=== PATIENT | male | born 1955 | race Caucasian/White ===

== ENCOUNTER 2018-10-30 17:58 | Observation (INO) | payer MEDICARE ==
[2018-10-30] MEDS ORDERED: 0.9 % SODIUM CHLORIDE 1000ML 1,000 ML IV SCH (18:15)
[2018-10-30] MEDS ORDERED: ACETAMINOPHEN 500 MG TABLET PO ONE (18:15)
--- NOTE | 2018-10-30 18:19 | Emergency Department Record ---
History of Present Illness - General Chief Complaint: Fever Stated Complaint: FEVER Time Seen by Provider: 10/30/18 18:14 Source: Patient Mode of Arrival: Ambulatory Limitations: No limitations - History of Present Illness Initial Comments: 63 yo male presents to ED for evaluation of fever symptoms at home 1 day following prostate biopsy. Patient reports chills, denies nausea, vomiting, flank pain, abdominal pain, or cough symptoms. Patient denies dysuria or hematuria symptoms as well. Patient was prescribed Cipro following his procedure yesterday as well. MD Complaint: Fever Onset/Timin -: Hour(s) Maximum Temperature: 102 F Temperature Source: Oral Context: Recent procedure Associated Symptoms: Denies other symptoms Treatments Prior to Arrival: None - Related Data Home Medications Medication Instructions Recorded Confirmed Last Taken Ciprofloxacin HCl [Cipro] 500 mg PO BID 10/30/18 10/30/18 10/30/18 Sotalol HCl [Betapace] 80 mg PO BID 10/30/18 10/30/18 10/30/18 Allergies Allergy/AdvReac Type Severity Reaction Status Date / Time No Known Drug Allergies Allergy Unknown Verified 10/30/18 18:05 [NO KNOWN DRUG ALLERGIES] Travel Screening - Travel/Exposure Within Last 30 Days Have you traveled within the last 30 days?: No Review of Systems Constitutional: Reports: Chills, Fever, Malaise. Denies: Night sweats Eyes: Denies: Eye discharge, Eye pain ENT: Denies: Congestion, Ear pain, Epistaxis Respiratory: Denies: Cough, Dyspnea Cardiovascular: Denies: Chest pain, Dyspnea on exertion Endocrine: Denies: Fatigue, Heat or cold intolerance Gastrointestinal: Denies: Abdominal pain, Nausea, Vomiting Genitourinary: Denies: Dysuria, Hematuria, Incontinence, Retention Musculoskeletal: Denies: Arthralgia, Back pain Skin: Denies: Bruising, Change in color, Change in hair/nails Neurological: Denies: Abnormal gait, Confusion, Headache, Tingling, Tremors, Weakness Psychiatric: Denies: Anxiety Hematological/Lymphatic: Denies: Anemia, Blood Clots Past Medical History - SOCIAL HISTORY Smoking Status: Never smoker Alcohol Use: Occasional Drug Use: None - RESPIRATORY Hx Respiratory Disorders: No - CARDIOVASCULAR Hx Cardio Disorders: Yes Hx Irregular Heartbeat: Yes (controlled afib) - NEURO Hx Neuro Disorders: No - GI Hx GI Disorders: No - Hx Genitourinary Disorders: No - ENDOCRINE Hx Endocrine Disorders: No - MUSCULOSKELETAL Hx Musculoskeletal Disorders: No - PSYCH Hx Psych Problems: No - HEMATOLOGY/ONCOLOGY Hx Hematology/Oncology Disorders: No Family Medical History Any Significant Family History?: No Physical Exam - General General Appearance: Alert, Oriented x3, Cooperative, Mild distress Limitations: No limitations - Head Head exam: Atraumatic, Normocephalic, Normal inspection Head exam detail: negative: Abrasion, Contusion, Mendieta's sign, General tenderness, Hematoma, Laceration - Eye Eye exam: Normal appearance. negative: Conjunctival injection, Periorbital swelling, Periorbital tenderness, Scleral icterus - ENT Ear exam: negative: Auricular hematoma, Auricular trauma Nasal Exam: negative: Active bleeding, Discharge, Dried blood, Foreign body Mouth exam: negative: Drooling, Laceration, Muffled voice, Tongue elevation - Neck Neck exam: Normal inspection. negative: Meningismus, Tenderness - Respiratory Respiratory exam: Normal lung sounds bilaterally. negative: Respiratory distress, Rhonchi, Stridor, Wheezes - Cardiovascular Cardiovascular Exam: Normal rhythm, Normal heart sounds, Tachycardia - GI/Abdominal GI/Abdominal exam: Soft. negative: Rebound, Rigid, Tenderness - Rectal Rectal exam: Deferred - exam: Deferred - Extremities Extremities exam: Normal inspection. negative: Pedal edema, Tenderness - Back Back exam: Denies: CVA tenderness (R), CVA tenderness (L) - Neurological Neurological exam: Alert, Normal gait, Oriented X3 - Psychiatric Psychiatric exam: Normal affect, Normal mood - Skin Skin exam: Normal color. negative: Abrasion Type of lesion: negative: abrasion Course Vital Signs 10/30/18 18:01 Temperature 101.3 F H Pulse Rate 101 H Respiratory 20 Rate Blood Pressure 151/92 Pulse Ox 97 - Reevaluation(s) Reevaluation #1: 10/30/18 19:14 Laboratory studies were reviewed: UA demonstrates: >50 RBCs 6-10 WBCs 4+ Bacteria Dr. Kidd pagemarlen for consultation. Reevaluation #2: 10/30/18 19:23 Case was discussed with Dr. Kidd, will initiate treatment with Cefipime per his recommendation and admit the patient for observation given his failed outpatient treatment. Patient and his SO are in agreement with the plan of care as discussed. Reevaluation #3: 10/30/18 19:27 Case was discussed with Madhuri Roberson NP, will accept admission at this time. Cefepime is being initiated in ED as well prior to transfer to the floor. Patient and his are in agreement with the plan of care as discussed. Medical Decision Making - Lab Data Result diagrams: 10/30/18 18:20 10/30/18 18:20 Disposition Disposition: Admit Clinical Impression: Post-operative infection Qualifiers: Encounter type: initial encounter Postoperative infection type: unspecified type Qualified Code(s): T81.40XA - Infection following a procedure, unspecified , initial encounter UTI (urinary tract infection) Qualifiers: Urinary tract infection type: acute cystitis Hematuria presence: with hematuria Qualified Code(s): N30.01 - Acute cystitis with hematuria Prostatitis Qualifiers: Prostatitis type: acute Qualified Code(s): N41.0 - Acute prostatitis Disposition: Still a Patient at [facility] Decision to Admit: Admit from ER Decision to Admit Date: 10/30/18 Decision to Admit Time: 19:25 Condition: (2) Stable Forms: Patient Portal Access Time of Disposition: 19:25 Quality - Quality Measures Quality Measures: N/A - Blood Pressure Screening Does Patient Have Any of the Following: No Blood Pressure Classification: Hypertensive Reading Systolic Measurement: 151 Diastolic Measurement: 92 Screening for High Blood Pressure: < First Hypertensive BP, F/U Documented > [ [id number]] First Hypertensive Follow-up Interventions: Referral to alternative/primary care provider.
[2018-10-30 18:30] LABS: BASO % 0.2 % (0-6); EOS % 1.3 % (0-6); HEMATOCRIT 42.3 % (42.0-52.0); HEMOGLOBIN 14.1 gm/dl (14.0-18.0); LYMPH % 13.9 % (16-45); MEAN CELL VOLUME 93.8 fl (81-97); MEAN CORPUSCULAR HEMOGLOBIN 31.3 pg (27-33); MEAN CORPUSCULAR HGB CONC 33.3 g/dl (32-36); MONO % 7.6 % (0-9); PLATELET COUNT 226 K/uL (130-400); RED BLOOD COUNT 4.51 M/uL (4.40-5.70); RED CELL DISTRIBUTION WIDTH 13.2 % (11.5-14.5); WHITE BLOOD COUNT W/O DIFF 10.5 K/uL (4.2-12.2)
[2018-10-30 18:43] LABS: BLOOD UREA NITROGEN 20 mg/dL (8-23); CREATININE 1.1 mg/dL (0.7-1.2); EST GLOMERULAR FILTRATION RATE > 60 mL/min
[2018-10-30 18:44] LABS: TOTAL PROTEIN 7.8 g/dL (6.6-8.7)
[2018-10-30 18:46] LABS: GLUCOSE,RANDOM 107 mg/dL (74-109)
[2018-10-30 18:49] LABS: ALB/GLOB RATIO 1.4 (1.1-1.8); ALBUMIN 4.5 g/dL (4.0-5.0); ALKALINE PHOSPHATASE 48 U/L (40-129); ALT/SGPT 19 U/L (<41); AST/SGOT 21 U/L (10.0-50.0)
[2018-10-30] MEDS ORDERED: IBUPROFEN 400 MG TABLET PO ONE (18:53)
[2018-10-30 19:05] LABS: URINE BILIRUBIN NEGATIVE (NEGATIVE); URINE BLOOD LARGE (NEGATIVE); URINE COLOR YELLOW; URINE GLUCOSE (UA) NEGATIVE (NEGATIVE); URINE KETONE NEGATIVE (NEGATIVE); URINE LEUKOCYTE ESTERASE SMALL (NEGATIVE); URINE NITRITE POSITIVE (NEGATIVE); URINE PROTEIN NEGATIVE (NEGATIVE); URINE UROBILINOGEN 0.2 E.U./dL (0.20 - 1.00)
[2018-10-30 19:06] LABS: URINE APPEARANCE CLOUDY
[2018-10-30 19:10] LABS: URINE RBC >50 (NONE SEEN)
[2018-10-30 19:11] LABS: URINE BACTERIA 4+; URINE EPITHELIAL CELLS NONE SEEN (FEW)
[2018-10-30] MEDS ORDERED: CEFTRIAXONE 1GM/50ML BAG 1 GM/50 ML BAG IVPB ONE (19:18)
[2018-10-30] MEDS ORDERED: CEFEPIME HCL 2 GM in 0.9 % SODIUM CHLORIDE 100ML 100 ML IVPB ONE (19:22)
[2018-10-30] MEDS ORDERED: 0.9 % SODIUM CHLORIDE 1000ML 1,000 ML IV PRN (20:30)
[2018-10-30] MEDS: SOTALOL HCL 80 MG TABLET PO SCH (22:28)
[2018-10-30] MEDS: CIPROFLOXACIN HCL 500 MG TABLET PO SCH (22:32)
[2018-10-31] MEDS ORDERED: CEFEPIME HCL 2 GM in 0.9 % SODIUM CHLORIDE 100ML 100 ML IVPB SCH (03:30)
[2018-10-31 06:57] LABS: BASO % 0.1 % (0-6); EOS % 0.2 % (0-6); HEMATOCRIT 36.9 % (42.0-52.0); HEMOGLOBIN 11.9 gm/dl (14.0-18.0); LYMPH % 6.5 % (16-45); MEAN CELL VOLUME 95.3 fl (81-97); MEAN CORPUSCULAR HEMOGLOBIN 30.7 pg (27-33); MEAN CORPUSCULAR HGB CONC 32.2 g/dl (32-36); MEAN PLATELET VOLUME 10.3 fl (7.4-10.4); MONO % 6.6 % (0-9); PLATELET COUNT 190 K/uL (130-400); RED BLOOD COUNT 3.87 M/uL (4.40-5.70); RED CELL DISTRIBUTION WIDTH 13.4 % (11.5-14.5); WHITE BLOOD COUNT W/O DIFF 12.9 K/uL (4.2-12.2)
[2018-10-31 07:17] LABS: ALB/GLOB RATIO 1.3 (1.1-1.8); ALBUMIN 3.6 g/dL (4.0-5.0); ALKALINE PHOSPHATASE 42 U/L (40-129); ALT/SGPT 16 U/L (<41); AST/SGOT 18 U/L (10.0-50.0); BLOOD UREA NITROGEN 20 mg/dL (8-23); CREATININE 1.1 mg/dL (0.7-1.2); EST GLOMERULAR FILTRATION RATE > 60 mL/min; GLUCOSE,RANDOM 130 mg/dL (74-109); TOTAL PROTEIN 6.4 g/dL (6.6-8.7)
[2018-10-31] MEDS: CALCIUM CARBONATE 500 MG TAB.CHEW PO PRN ×2 (07:30→13:54)
[2018-10-31] MEDS: ACETAMINOPHEN 500 MG TABLET PO PRN ×3 (07:35→21:25)
[2018-10-31] MEDS: SOTALOL HCL 80 MG TABLET PO SCH ×2 (09:15→21:25)
[2018-10-31] MEDS: CIPROFLOXACIN HCL 500 MG TABLET PO SCH ×2 (09:15→21:25)
--- NOTE | 2018-10-31 11:01 | History & Physical ---
History of Present Illness - Date of Service Date of Service for History & Physical: 10/31/18 - History of Present Illness Admitting Diagnosis: Post-op infection. Prostatitis. UTI History of Present Illness: 63 yo male presents to ED for evaluation of fever symptoms at home 1 day following prostate biopsy. Patient reports chills, denies nausea, vomiting, flank pain, abdominal pain, or cough symptoms. Patient denies dysuria or hematuria symptoms as well. Patient was prescribed Cipro following his procedure yesterday as well. In the ED, temp was 101.3, HR 101, BP 151/92, RR 20, 97% on room air. UA demonstrated >50 RBCs, 6-10 WBCs, 4+ bacteria. Dr. Berry spoke with Dr. Kidd and he recommended obs with IV cefipime, since failed outpatient cipro. 10/31/18: Pt. is resting in bed, he currently denies pain. Temp at 1045 was 99.4. Changed cefipime IV to cefdinir 300mg bid. Will plan to d/c home this evening if pt remains afebrile. PCP: Dr. Hill Urology: Dr. Kidd Travel Screening - Travel/Exposure Within Last 30 Days Have you traveled within the last 30 days?: No - Travel/Exposure Within Last Year Have you traveled outside the [place] in the last year?: Yes Location Detail:: [place] - Additonal Travel Details Have you been exposed to anyone with a communicable illness?: No - Travel Symptoms Symptom Screening: None Review of Systems Constitutional: Reports: Chills, Fever, Malaise. Denies: Night sweats Eyes: Denies: Eye discharge, Eye pain ENT: Denies: Congestion, Ear pain, Epistaxis Respiratory: Denies: Cough, Dyspnea Cardiovascular: Denies: Chest pain, Dyspnea on exertion Endocrine: Denies: Fatigue, Heat or cold intolerance Gastrointestinal: Denies: Abdominal pain, Nausea, Vomiting Genitourinary: Denies: Dysuria, Hematuria, Incontinence, Retention Musculoskeletal: Denies: Arthralgia, Back pain Skin: Denies: Bruising, Change in color, Change in hair/nails Neurological: Denies: Abnormal gait, Confusion, Headache, Tingling, Tremors, Weakness Psychiatric: Denies: Anxiety Hematological/Lymphatic: Denies: Anemia, Blood Clots Past Medical History - SOCIAL HISTORY Smoking Status: Never smoker Alcohol Use: Occasional Drug Use: None - RESPIRATORY Hx Respiratory Disorders: No - CARDIOVASCULAR Hx Cardio Disorders: Yes Hx Irregular Heartbeat: Yes (controlled afib) - NEURO Hx Neuro Disorders: No - GI Hx GI Disorders: No - Hx Genitourinary Disorders: No - ENDOCRINE Hx Endocrine Disorders: No - MUSCULOSKELETAL Hx Musculoskeletal Disorders: No - PSYCH Hx Psych Problems: No - HEMATOLOGY/ONCOLOGY Hx Hematology/Oncology Disorders: No Family Medical History Any Significant Family History?: No H&P Meds/Allergies - Allergies Allergies: Allergies Allergy/AdvReac Type Severity Reaction Status Date / Time No Known Drug Allergies Allergy Unknown Verified 10/30/18 18:05 [NO KNOWN DRUG ALLERGIES] - Home Medications Home Medications Medication Instructions Recorded Confirmed Last Taken Ciprofloxacin HCl [Cipro] 500 mg PO BID 10/30/18 10/30/18 10/30/18 Sotalol HCl [Betapace] 80 mg PO BID 10/30/18 10/30/18 10/30/18 - Active Medications Active Medications: Current Medications Acetaminophen (Tylenol 500mg Tab) 1,000 mg PO Q6H PRN PRN Reason: PAIN - MILD(1-4)/FEVER Last Admin: 10/31/18 07:35 Dose: 1,000 mg Calcium Carbonate/Glycine (Tums) 500 mg PO Q4H PRN PRN Reason: GI UPSET Last Admin: 10/31/18 07:30 Dose: 500 mg Cefdinir (Cefdinir) 300 mg PO BID [facility] Ciprofloxacin (Cipro) 500 mg PO BID [facility] Last Admin: 10/31/18 09:15 Dose: 500 mg Sodium Chloride () 1,000 mls @ 0 mls/hr IV .Q0M [facility] Last Infusion: 10/30/18 19:13 Dose: Infused Sodium Chloride () 1,000 mls @ 125 mls/hr IV .Q8H PRN PRN Reason: LARGE VOLUME IV Ibuprofen (Motrin 400mg) 800 mg PO Q8H PRN PRN Reason: FEVER Sotalol HCl (Betapace) 80 mg PO BID [facility] Last Admin: 10/31/18 09:15 Dose: 80 mg Physical Exam - Vital Signs Vital Signs: Vital Signs - Last 24 Hrs Temp Pulse Pulse Resp BP BP Pulse Ox 10/31/18 10:48 99.4 F 10/31/18 07:38 100.9 F H 86 18 142/79 96 10/31/18 04:00 97.4 F L 79 16 138/75 99 10/30/18 21:00 16 10/30/18 20:59 99.9 F H 92 H 16 121/73 96 10/30/18 20:10 103 F H 98 H 20 121/76 93 L 10/30/18 19:38 102.6 F H 10/30/18 19:20 101.8 F H 103 H 148/90 94 L 10/30/18 18:57 103.1 F H 10/30/18 18:01 101.3 F H 101 H 20 151/92 97 - General General Appearance: Alert, Oriented x3, Cooperative, No acute distress Limitations: No limitations - Head Head exam: Atraumatic, Normocephalic, Normal inspection Head exam detail: negative: Abrasion, Contusion, Mendieta's sign, General tenderness, Hematoma, Laceration - Eye Eye exam: Normal appearance. negative: Conjunctival injection, Periorbital swelling, Periorbital tenderness, Scleral icterus - ENT Ear exam: negative: Auricular hematoma, Auricular trauma Nasal Exam: negative: Active bleeding, Discharge, Dried blood, Foreign body Mouth exam: negative: Drooling, Laceration, Muffled voice, Tongue elevation - Neck Neck exam: Normal inspection. negative: Meningismus, Tenderness - Respiratory Respiratory exam: Normal lung sounds bilaterally. negative: Respiratory distress, Rhonchi, Stridor, Wheezes - Cardiovascular Cardiovascular Exam: Normal rhythm, Normal heart sounds - GI/Abdominal GI/Abdominal exam: Soft. negative: Rebound, Rigid, Tenderness - Rectal Rectal exam: Deferred - exam: Deferred - Extremities Extremities exam: Normal inspection. negative: Pedal edema, Tenderness - Back Back exam: Denies: CVA tenderness (R), CVA tenderness (L) - Neurological Neurological exam: Alert, Normal gait, Oriented X3 - Psychiatric Psychiatric exam: Normal affect, Normal mood - Skin Skin exam: Normal color. negative: Abrasion Type of lesion: negative: abrasion Results - Labs Result Diagrams: 10/31/18 06:33 10/31/18 06:33 Labs Last 24 Hours: Laboratory Results - last 24 hr 04/16/19 04/16/19 04/16/19 18:20 18:20 18:55 WBC 10.5 RBC 4.51 Hgb 14.1 Hct 42.3 MCV 93.8 MCH 31.3 MCHC 33.3 RDW 13.2 Plt Count 226 MPV 10.0 Gran % 77.0 Neutrophils % Lymphocytes % 13.9 L Monocytes % 7.6 Eosinophils % 1.3 Basophils % 0.2 Lymphocytes Monocytes Sodium 138 Potassium 4.0 Chloride 99 Carbon Dioxide 26.0 Anion Gap 13.0 BUN 20 Creatinine 1.1 Estimated GFR > 60 Random Glucose 107 Calcium 10.0 Total Bilirubin 0.30 AST 21 ALT 19 Alkaline Phosphatase 48 Total Protein 7.8 Albumin 4.5 Globulin 3.3 Albumin/Globulin Ratio 1.4 Urine Color Yellow Urine Appearance Cloudy Urine pH 6.5 Ur Specific [place] 1.015 Urine Protein Negative Urine Glucose (UA) Negative Urine Ketones Negative Urine Blood Large H Urine Nitrite Positive H Urine Bilirubin Negative Urine Urobilinogen 0.2 Ur Leukocyte Esterase Small H Urine RBC >50 Urine WBC 6 - 10 Ur Epithelial Cells None seen Urine Bacteria 4+ 10/31/18 10/31/18 06:33 06:33 WBC 12.9 H RBC 3.87 L Hgb 11.9 L Hct 36.9 L MCV 95.3 MCH 30.7 MCHC 32.2 RDW 13.4 Plt Count 190 MPV 10.3 Gran % Neutrophils % 85.0 H Lymphocytes % 6.5 L Monocytes % 6.6 Eosinophils % 0.2 Basophils % 0.1 Lymphocytes 7.0 L Monocytes 8.0 Sodium 139 Potassium 3.7 Chloride 106 Carbon Dioxide 23.0 Anion Gap 10.0 BUN 20 Creatinine 1.1 Estimated GFR > 60 Random Glucose 130 H Calcium 8.8 Total Bilirubin 0.50 AST 18 ALT 16 Alkaline Phosphatase 42 Total Protein 6.4 L Albumin 3.6 L Globulin 2.8 Albumin/Globulin Ratio 1.3 Urine Color Urine Appearance Urine pH Ur Specific [place] Urine Protein Urine Glucose (UA) Urine Ketones Urine Blood Urine Nitrite Urine Bilirubin Urine Urobilinogen Ur Leukocyte Esterase Urine RBC Urine WBC Ur Epithelial Cells Urine Bacteria VTE H&P Assessment - Risk for VTE Risk for VTE: Yes Risk Level: Very Low Risk Assessment Date: 10/31/18 Risk Assessment Time: 10:59 VTE Orders Placed or Will Be Placed: Yes Plan - Detailed Diagnosis and Plan (1) Prostatitis Current Visit: Yes Status: Acute Qualifiers: Prostatitis type: acute Qualified Code(s): N41.0 - Acute prostatitis Base Code: N41.9 - INFLAMMATORY DISEASE OF PROSTATE, UNSPECIFIED Comment: 10/31: -Secondary to prostate biopsy on 10/29 -changed from IV to po abx today (2) UTI (urinary tract infection) Current Visit: Yes Status: Acute Qualifiers: Urinary tract infection type: acute cystitis Hematuria presence: with hematuria Qualified Code(s): N30.01 - Acute cystitis with hematuria Base Code: N39.0 - URINARY TRACT INFECTION, SITE NOT SPECIFIED Comment: -Pos UA on 10/30- sent for culture -Changed cefipime to cefdinir today (3) At risk for deep venous thrombosis Current Visit: Yes Status: Acute Base Code: Z91.89 - OTH PERSONAL RISK FACTORS, NOT ELSEWHERE CLASSIFIED Comment: 10/31/18: -will order prophylaxis if hospitalization greater than 24h (4) Full code status Current Visit: Yes Status: Acute Base Code: Z78.9 - OTHER SPECIFIED HEALTH STATUS Comment: 10/31/18: -Pt. is a full code
[2018-10-31] MEDS: CEFDINIR 300 MG CAPSULE PO SCH ×2 (11:20→21:25)
[2018-10-31] MEDS: IBUPROFEN 400 MG TABLET PO PRN (13:53)
[2018-10-31] MEDS ORDERED: ACETAMINOPHEN 1,000 MG/100 ML BTL IVPB PRN (16:00)
[2018-11-01] MEDS: IBUPROFEN 400 MG TABLET PO PRN (00:23)
[2018-11-01] MEDS: ACETAMINOPHEN 500 MG TABLET PO PRN (03:31)
[2018-11-01 07:04] LABS: BASO % 0.1 % (0-6); EOS % 0.8 % (0-6); GRAN % 78.7 % (47-80); HEMATOCRIT 33.6 % (42.0-52.0); HEMOGLOBIN 10.7 gm/dl (14.0-18.0); MEAN CELL VOLUME 97.4 fl (81-97); MEAN CORPUSCULAR HGB CONC 31.8 g/dl (32-36); MEAN PLATELET VOLUME 9.9 fl (7.4-10.4); MONO % 8.4 % (0-9); PLATELET COUNT 156 K/uL (130-400); RED BLOOD COUNT 3.45 M/uL (4.40-5.70); RED CELL DISTRIBUTION WIDTH 13.7 % (11.5-14.5); WHITE BLOOD COUNT W/O DIFF 9.7 K/uL (4.2-12.2)
[2018-11-01 07:24] LABS: ALB/GLOB RATIO 1.2 (1.1-1.8); ALBUMIN 3.2 g/dL (4.0-5.0); ALKALINE PHOSPHATASE 45 U/L (40-129); ALT/SGPT 21 U/L (<41); AST/SGOT 21 U/L (10.0-50.0); BLOOD UREA NITROGEN 16 mg/dL (8-23); CREATININE 1.2 mg/dL (0.7-1.2); EST GLOMERULAR FILTRATION RATE > 60 mL/min; GLUCOSE,RANDOM 108 mg/dL (74-109); TOTAL PROTEIN 5.9 g/dL (6.6-8.7)
[2018-11-01] MEDS: CEFDINIR 300 MG CAPSULE PO SCH (09:12)
[2018-11-01] MEDS: SOTALOL HCL 80 MG TABLET PO SCH (09:12)
[2018-11-01] MEDS: CIPROFLOXACIN HCL 500 MG TABLET PO SCH (09:12)
--- NOTE | 2018-11-01 10:37 | Discharge Summary ---
Providers Discharge Summary Date: 11/01/18 Date of admission: 10/30/18 20:21 Expected Date of Discharge: 11/01/18 Attending physician: LAUREN BRADFORD Primary care physician: CLEMENCIA GÓMEZ D.O. Physical Exam - Vital Signs Vital Signs: Vital Signs - Last 24 Hrs Temp Pulse Resp BP Pulse Ox 11/01/18 08:17 97.1 F L 62 16 112/76 11/01/18 04:30 98.3 F 62 18 95/60 94 L 11/01/18 02:35 99.1 F 11/01/18 00:00 100 F H 79 20 125/70 92 L 10/31/18 21:00 16 10/31/18 20:00 98.9 F 79 18 120/67 94 L 10/31/18 16:00 99.2 F 80 18 117/68 96 10/31/18 15:56 100.5 F H 10/31/18 12:00 100.9 F H 20 152/89 94 L 10/31/18 10:48 99.4 F - General General Appearance: Alert, Oriented x3, Cooperative, No acute distress Limitations: No limitations - Head Head exam: Atraumatic, Normocephalic, Normal inspection Head exam detail: negative: Abrasion, Contusion, Mendieta's sign, General tenderness, Hematoma, Laceration - Eye Eye exam: Normal appearance. negative: Conjunctival injection, Periorbital swelling, Periorbital tenderness, Scleral icterus - ENT Ear exam: negative: Auricular hematoma, Auricular trauma Nasal Exam: negative: Active bleeding, Discharge, Dried blood, Foreign body Mouth exam: negative: Drooling, Laceration, Muffled voice, Tongue elevation - Neck Neck exam: Normal inspection. negative: Meningismus, Tenderness - Respiratory Respiratory exam: Normal lung sounds bilaterally. negative: Respiratory distress, Rhonchi, Stridor, Wheezes - Cardiovascular Cardiovascular Exam: Normal rhythm, Normal heart sounds - GI/Abdominal GI/Abdominal exam: Soft. negative: Rebound, Rigid, Tenderness - Rectal Rectal exam: Deferred - exam: Deferred - Extremities Extremities exam: Normal inspection. negative: Pedal edema, Tenderness - Back Back exam: Denies: CVA tenderness (R), CVA tenderness (L) - Neurological Neurological exam: Alert, Normal gait, Oriented X3 - Psychiatric Psychiatric exam: Normal affect, Normal mood - Skin Skin exam: Normal color. negative: Abrasion Type of lesion: negative: abrasion Hospitalization - Hospitalization Admission Diagnosis: Post-op infection. Prostatitis. UTI - Problem List/Discharge Diagnosis (1) Prostatitis Current Visit: Yes Status: Acute Discharge Diagnosis: Prostatitis type: acute Qualified Code(s): N41.0 - Acute prostatitis Base Code: N41.9 - INFLAMMATORY DISEASE OF PROSTATE, UNSPECIFIED Comment: 11/01: -Secondary to prostate biopsy on 10/29 -Pt. is tolerating PO cefdinir 300mg bid, WBC improved from 12.9 to 9.7 today, temp less than 100.4 since 1500 10/31 (2) UTI (urinary tract infection) Current Visit: Yes Status: Acute Discharge Diagnosis: Urinary tract infection type: acute cystitis Hematuria presence: with hematuria Qualified Code(s): N30.01 - Acute cystitis with hematuria Base Code: N39.0 - URINARY TRACT INFECTION, SITE NOT SPECIFIED Comment: -Pos UA on 10/30- sent for culture -Pt. is tolerating PO cefdinir 300mg bid, WBC improved from 12.9 to 9.7 today, temp less than 100.4 since 1500 10/31 (3) At risk for deep venous thrombosis Current Visit: Yes Status: Acute Base Code: Z91.89 - OTH PERSONAL RISK FACTORS, NOT ELSEWHERE CLASSIFIED Comment: 11/01/18: -d/c home today, pt will return to normal level of activity (4) Full code status Current Visit: Yes Status: Acute Base Code: Z78.9 - OTHER SPECIFIED HEALTH STATUS Comment: 11/01/18: -Pt. is a full code - Hospitalization Course Disposition: Home, Self-Care Hospital Course: 63 yo male presents to ED for evaluation of fever symptoms at home 1 day following prostate biopsy. Patient reports chills, denies nausea, vomiting, flank pain, abdominal pain, or cough symptoms. Patient denies dysuria or hematuria symptoms as well. Patient was prescribed Cipro following his procedure yesterday as well. In the ED, temp was 101.3, HR 101, BP 151/92, RR 20, 97% on room air. UA demonstrated >50 RBCs, 6-10 WBCs, 4+ bacteria. Dr. Berry spoke with Dr. Kidd and he recommended obs with IV cefipime, since failed outpatient cipro. 10/31/18: Pt. is resting in bed, he currently denies pain. Temp at 1045 was 99.4. Changed cefipime IV to cefdinir 300mg bid. Will plan to d/c home this evening if pt remains afebrile. 11/01/18: Pt. is tolerating PO cefdinir 300mg bid, WBC improved from 12.9 to 9.7 today , temp less than 100.4 since 1500 10/31 PCP: Dr. Gómez Urology: Dr. Kidd Abnormal Labs: Abnormal Lab Results 10/30/18 10/30/18 10/31/18 Range/Units 18:20 18:55 06:33 WBC 12.9 H (4.2-12.2) K/uL RBC 3.87 L (4.40-5.70) M/uL Hgb 11.9 L (14.0-18.0) gm/dl Hct 36.9 L (42.0-52.0) % MCV (81-97) fl MCHC (32-36) g/dl Neutrophils % 85.0 H (47-80) % Lymphocytes % 13.9 L 6.5 L (16-45) % Lymphocytes 7.0 L (16-45) % Chloride (98-107) mmol/L Random Glucose (74-109) mg/dL Total Protein (6.6-8.7) g/dL Albumin (4.0-5.0) g/dL Urine Blood Large H (NEGATIVE) Urine Nitrite Positive H (NEGATIVE) Ur Leukocyte Esterase Small H (NEGATIVE) 10/31/18 11/01/18 11/01/18 Range/Units 06:33 06:51 06:51 WBC (4.2-12.2) K/uL RBC 3.45 L (4.40-5.70) M/uL Hgb 10.7 L (14.0-18.0) gm/dl Hct 33.6 L (42.0-52.0) % MCV 97.4 H (81-97) fl MCHC 31.8 L (32-36) g/dl Neutrophils % (47-80) % Lymphocytes % 12.0 L (16-45) % Lymphocytes (16-45) % Chloride 108 H (98-107) mmol/L Random Glucose 130 H (74-109) mg/dL Total Protein 6.4 L 5.9 L (6.6-8.7) g/dL Albumin 3.6 L 3.2 L (4.0-5.0) g/dL Urine Blood (NEGATIVE) Urine Nitrite (NEGATIVE) Ur Leukocyte Esterase (NEGATIVE) Condition at Discharge: (2) Stable Discharge Medications - Discharge Medications Prescriptions: Cefdinir 300 mg PO BID #11 capsule Home Medications: Ambulatory Orders Ciprofloxacin HCl [Cipro] 500 mg PO BID 10/30/18 [Last Taken 10/30/18] Sotalol HCl [Betapace] 80 mg PO BID 10/30/18 [Last Taken 10/30/18] Acetaminophen [Tylenol 500Mg Tab] 1,000 mg PO Q6H PRN tablet 11/01/18 [Last Taken Unknown] Cefdinir 300 mg PO BID #11 capsule 11/01/18 [Last Taken Unknown] Ibuprofen [Motrin] 800 mg PO Q8H PRN tablet 11/01/18 [Last Taken Unknown] Discharge Plan - Discharge Instructions Diet at Discharge: Regular Diet Additional Instructions: Follow up with urology as scheduled Return to the ED if you experience any fever greater than 100.4 F that does not improve with tylenol and motrin Increase fluids First dose of cefdinir at home this evening- take with food Quality Measures - Quality Measures Quality Measures: Advance Directives, Documentation of Current Medications in Medical Record, Elder Maltreatment Screen and Follow-Up Plan, Screening for High Blood Pressure and F/U Documented - Current Medications Quality Measure: Measure #130: Documentation of Current Medications Documentation of Current Medications: <Current Medications Documented/Reviewed> [G6580] - Blood Pressure Screening Quality Measure: Screening for High Blood Pressure and Follow-Up Documented Does Patient Have Any of the Following: Active Dx of HTN Blood Pressure Classification: Hypertensive Reading Systolic Measurement: 151 Diastolic Measurement: 92 Screening for High Blood Pressure: Patient Exclusion, Hx of HTN [G9744] - Advance Directives Quality Measure: Measure #47: Care Plan Advance Directives Established: No Advance Directives Information Provided To Patient: No Advance Directives on File: No Living Will: No Power of Commodity Loan Clerk: No Advance Care Planning: <Care Plan/Decision Maker Documented; Discussed & Documented> [7817F] - Elder Abuse Suspicion Index Screening: Elder Abuse Suspicion Index Screening Rely on people for bathing, dressing, shopping, banking, etc: No Prevented from getting food, clothes, medication, etc: No Made to feel shamed or threatened by someone: No Forced to sign papers or use money against will: No Feel afraid, touched in ways not wanted or hurt physically: No Poor eye contact, withdrawn, malnourished, cuts or bruises: No Screening Result: Negative result EASI Reference Information: Gael MATSON, Bony Noyola, Carlos Pearl, Miguel Rosales.Development and validation of a tool to assist physicians identification of elder abuse: The Elder Abuse Suspicion Index (EASI ). Journal of Elder Abuse and Neglect, 2008; 20 (3): 276-300. - Elder Maltreatment Screen Quality Measures: Elder Maltreatment Screen and Follow-Up Plan Elder Maltreatment Screen: <Negative, No Follow-Up Plan Required> [G8734]
== END 2018-11-01 12:40 | disposition home or self-care (01) ==
LOC: ER 17:58 → MEDSURG 20:21
PROVIDERS: ADMIT Internal Medicine; ATTEND Internal Medicine
DX: T81.40XA Infection following a procedure, unspecified, initial encounter (principal); N41.0 Acute prostatitis; N30.01 Acute cystitis with hematuria; I48.91 Unspecified atrial fibrillation
CPT/HCPCS: 99285 ×2; 96365; 85025 ×2; 80053 ×3; 81001; 85027; G0378 ×3; J3490 ×2; 99217; 99220; J7030